=== PATIENT | male | born 1960 | race Caucasian/White ===

== ENCOUNTER → 2025-08-28 | Outpatient (CLI) | payer MEDICARE, OTHER | LOC: M RAD 14:14 | PROVIDERS: ATTEND Internal Medicine Pulmonary Disease | DX: R06.02 Shortness of breath (principal) ==

== ENCOUNTER → 2025-09-07 | Outpatient (CLI) | payer OTHER, MEDICARE ==
[~2025-09-07] MED LIST: METHACHOLINE KIT (6 VIAL.NEB PREMIX) INH ONE
== END ==
LOC: M CARPUL 13:24 → EDUNIT# 14:00
PROVIDERS: ATTEND Internal Medicine Pulmonary Disease
DX: R06.02 Shortness of breath (principal)
CPT/HCPCS: 88738; 94010; 94070; 94726; 94729; 95070; J7674

== ENCOUNTER → 2025-09-29 | Outpatient (CLI) | payer OTHER, MEDICARE | LOC: EDUNIT# 14:00 → M PLAIMG 14:05 | PROVIDERS: ATTEND Internal Medicine Pulmonary Disease | DX: R06.02 Shortness of breath (principal); I36.1 Nonrheumatic tricuspid (valve) insufficiency ==